=== PATIENT | female | born 1975 | race Caucasian/White ===

== ENCOUNTER 2017-03-07 18:13 | Emergency (ER) | payer OTHER ==
[2017-03-07 18:58] VITALS: BP 132/67
--- NOTE | 2017-03-07 19:06 | UC ---
Throat Pain/Nasal Wilfred HPI - HPI Summary HPI Summary: throat pain, ear pain for the past day, daughter has strep. - History of Current Complaint Chief Complaint: UCGeneralIllness Stated Complaint: SORE THROAT Time Seen by Provider: 03/07/17 19:00 Hx Obtained From: Patient Hx Last Menstrual Period: 03/14/16 ?: No Onset/Duration: Sudden Onset, Lasting Days - 1 Severity: Mild Cough: None Associated Signs & Symptoms: Positive: Dysphagia - Allergies/Home Medications Allergies/Adverse Reactions: Allergies Allergy/AdvReac Type Severity Reaction Status Date / Time Sulfa Antibiotics Allergy Altered Verified 03/07/17 18:58 Mental Status PMH/Surg Hx/FS Hx/Imm Hx Previously Healthy: Yes - Surgical History Surgical History: Yes Surgery Procedure, Year, and Place: 2 c-sections. sinus 2007. brain tumor- benign 07/16/14. ABLATION--05/2016. HYSTERECTOMY--10/2016 - Family History Known Family History: Positive: None Negative: Cardiac Disease, Hypertension - Social History Alcohol Use: Occasionally Substance Use Type: None Smoking Status (MU): Never Smoked Tobacco Review of Systems Constitutional: Negative Skin: Negative Eyes: Negative ENT: Sore Throat, Ear Ache Respiratory: Negative Cardiovascular: Negative Gastrointestinal: Negative Genitourinary: Negative Motor: Negative Neurovascular: Negative Musculoskeletal: Negative Neurological: Negative Psychological: Negative Is Patient Immunocompromised?: No All Other Systems Reviewed And Are Negative: Yes Physical Exam Triage Information Reviewed: Yes Appearance: Well-Appearing, Well-Nourished, Pain Distress Vital Signs: Initial Vital Signs Temp 98.6 F 03/07/17 18:55 Pulse 53 03/07/17 18:55 Resp 16 03/07/17 18:55 BP 132/67 03/07/17 18:55 Pulse Ox 100 03/07/17 18:55 Vital Signs Reviewed: Yes Eye Exam: Normal ENT Exam: Normal ENT: Positive: Pharyngeal erythema, TM bulging - serous fluid behind TM, bilateral Dental Exam: Normal Neck exam: Normal Neck: Positive: Supple, Nontender, No Lymphadenopathy Respiratory Exam: Normal Respiratory: Positive: Chest non-tender, Lungs clear, Normal breath sounds Cardiovascular Exam: Normal Cardiovascular: Positive: RRR, No Murmur, Pulses Normal Abdominal Exam: Normal Abdomen Description: Positive: Nontender, No Organomegaly, Soft Bowel Sounds: Positive: Present Musculoskeletal Exam: Normal Musculoskeletal: Positive: Strength Intact, ROM Intact, No Edema Neurological Exam: Normal Neurological: Positive: Alert, Muscle Tone Normal Psychological Exam: Normal Skin Exam: Normal Throat Pain/Nasal Course/Dx - Course Course Of Treatment: hx obtained, exam performed ,meds reviewed, rapid strep obtained and is neg, bother her kids are positive, she clinically presents as such and will treat - Differential Dx/Diagnosis Differential Diagnosis/HQI/PQRI: Pharyngitis, Sinusitis Provider Diagnoses: pharyngitis Discharge - Discharge Plan Condition: Stable Disposition: HOME Patient Education Materials: Pharyngitis (ED) Additional Instructions: 1. take the medication as prescribed. 2. INcrease fluid intake and get plenty of rest.
[2017-03-07] MEDS ORDERED: Amoxicillin PO (*) 500 MG CAP PO ONE (19:42)
== END 2017-03-07 19:50 | disposition home or self-care (01) ==
LOC: UCCORT 18:13
DX: J02.9 Acute pharyngitis, unspecified (principal); Z88.2 Allergy status to sulfonamides
CPT/HCPCS: 87651; 99211; A9270-GY; G0463

== ENCOUNTER 2019-04-13 08:42 | Emergency (ER) | payer OTHER ==
--- OUTSIDE RECORDS SUMMARY | 2019-04-13 09:11 | XMS REPORT | Summary of Care ---
:1975 Author Organization [facility] Address [address] [place] [address] Care Team Providers Name Role Phone Whit Smith Primary Care Provider Encounter Details Date Type Department Care Team Description 04/05/2019 Hospital Encounter [facility] Clinical Status post bariatric surgery; Pathology at [facility] Screening for endocrine, nutritional, metabolic and immunity disorder; [place] BMI 27.0-27.9,adult [address] [facility] Room [address] [place] [id number] Allergies Active Allergy Reactions Severity Noted Date Comments Sulfa Antibiotics Other (See Comments) High 06/20/2014 Patient reports "can 't function, can't sit up, walk, nothing". documented as of this encounter (statuses as of 04/06/2019) Medications Medication Sig Dispensed Refills Start Date End Date Status cyclobenzaprine Take 5 mg by 0 Active (FLEXERIL) 10 MG mouth Two times tablet daily as needed for Muscle spasms alprazolam (XANAX) Take 0.25 mg by 0 Active 0.25 MG tablet mouth Two times daily as needed for Sleep Docusate Sodium Take 100 mg by 0 Active (ELIZABETH STOOL mouth daily as SOFTENER PO) needed acetaminophen Take 500 mg by 0 Active (TYLENOL) 500 MG mouth every 6 tablet (six) hours as needed for Pain Multiple Take by mouth 0 Active Vitamins-Minerals (CELEBRATE MULTI-COMPLETE 36) CAPS Calcium Take by mouth 0 Active Citrate-Vitamin D (CITRACAL PETITES/VITAMIN D) 200-250 MG-UNIT TABS BIOTIN PO Take by mouth 0 Active butalbital-acetaminoph Take 1 tablet 0 Active en-caffeine (FIORICET, by mouth ESGIC) 50-325-40 MG per tablet omeprazole (PRILOSEC) Take 1 capsule 90 capsule 3 01/30/2019 01/29/2020 Active 20 MG by mouth daily capsuleIndications: To prevent Morbid obesity gastric ulcers Nystatin 387510 Apply to 60 g 3 04/05/2019 Active UNIT/GM External affected area Powder (MYCOSTATIN) three times daily as needed. documented as of this encounter (statuses as of 04/06/2019) Active Problems Problem Noted Date BMI 28.0-28.9,adult 05/09/2018 Status post bariatric surgery 12/07/2017 BMI 34.0-34.9,adult 12/07/2017 Anxiety 10/19/2017 Hyperlipidemia documented as of this encounter (statuses as of 04/06/2019) Resolved Problems Problem Noted Date Resolved Date Depression 10/19/2017 05/09/2018 Pre-op testing 08/17/2017 05/09/2018 Overview: Added automatically from request for surgery [id number] Morbid obesity 07/20/2017 12/07/2017 Adult BMI 40.0-44.9 kg/sq m 12/07/2017 documented as of this encounter (statuses as of 04/06/2019) Social History Tobacco Use Types Packs/Day Years Used Date Never Smoker 0 Smokeless Tobacco: Never Used Alcohol Use Drinks/Week oz/Week Comments Yes 1-2 Standard drinks or equivalent 1.0 - 2.0 weekly Sex Assigned at Date Recorded Not on file Job Start Date Occupation Industry Not on file Not on file Not on file Travel History Travel Start Travel End No recent travel history available. documented as of this encounter Last Filed Vital Signs Not on filedocumented in this encounter Plan of Treatment Date Type Specialty Care Team Description 05/03/2019 Nutrition Surgery Avril Kern, RD, CDN [address] [place] [address] [phone] Health Maintenance Due Date Last Done Comments MMR Vaccines (1 of 1 - Standard 1978 series) DTaP,Tdap,and Td Vaccines (1 - 1984 Tdap) HIV Screening 1990 Varicella Vaccines (1 of 2 - 13+ 1990 2-dose series) Cervical Cancer Screening 5 years 1998 Influenza Vaccine 02/21/2019 Pneumococcal Vaccine: 65+ Years (1 2042 of 2 - PCV13) HIB Vaccines Aged Out No longer eligible based on patient's age to complete this topic Hepatitis A Vaccines Aged Out No longer eligible based on patient's age to complete this topic Hepatitis B Vaccines Aged Out No longer eligible based on patient's age to complete this topic IPV Vaccines Aged Out No longer eligible based on patient's age to complete this topic Pneumococcal Vaccine: Pediatrics Aged Out No longer eligible based on (0 to 5 Years) and At-Risk patient's age to complete this Patients (6 to 64 Years) topic documented as of this encounter Implants Implanted Type Area Patient Care Assistant Device Shelf Model / Identifier Expiration Serial / Date Lot Chaim Julian 60 - [id number] N/A: Armando RYDER GARCIA [id number] / Implanted: Qty: 4 on 10/19/2017 by Jaison Irwin MD at [facility] [employer] [facility] / documented as of this encounter Procedures Procedure Name Priority Date/Time Associated Diagnosis Comments VITAMIN D 25 Routine 04/05/2019 4:25 PM Status post Results for this HYDROXY, TOTAL EST bariatric surgery procedure are in Screening for the results endocrine, section. nutritional, metabolic and immunity disorder BMI 27.0-27.9,adult IRON LEVEL Routine 04/05/2019 4:25 PM Status post Results for this EST bariatric surgery procedure are in Screening for the results endocrine, section. nutritional, metabolic and immunity disorder BMI 27.0-27.9,adult FOLATE Routine 04/05/2019 4:25 PM Status post Results for this EST bariatric surgery procedure are in Screening for the results endocrine, section. nutritional, metabolic and immunity disorder BMI 27.0-27.9,adult FERRITIN LEVEL Routine 04/05/2019 4:25 PM Status post Results for this EST bariatric surgery procedure are in Screening for the results endocrine, section. nutritional, metabolic and immunity disorder BMI 27.0-27.9,adult VITAMIN B12 Routine 04/05/2019 4:25 PM Status post Results for this EST bariatric surgery procedure are in Screening for the results endocrine, section. nutritional, metabolic and immunity disorder BMI 27.0-27.9,adult documented in this encounter Results Iron Level (04/05/2019 4:25 PM EST) Iron 90 37 - 145 ug/dl [facility] at CG Specimen Plasma Performing Organization Address City/State/Zipcode Phone Number [facility] AT [address] [address] [facility] at [address] [place] [phone] Vitamin B12 (04/05/2019 4:25 PM EST) Vitamin B12 1,161 (H) 211 - 946 pg/ml [facility] Clin Pathology Specimen Plasma Performing Organization Address City/[facility] Phone Number [facility] [address] [place] [address] [facility] [address] [place] [address] Pathology Vitamin D 25 Hydroxy, Total (04/05/2019 4:25 PM EST) Vitamin D 25 Hydroxy, 65 >30 ng/mL [facility] TOTAL Clin Pathology Specimen Serum Performing Organization Address [facility] Phone Number [facility] [address] [place] [address] [phone] [facility] [address] [place] [address] Pathology Folate (04/05/2019 4:25 PM EST) Folate >20.00 >4.77 ng/mL [facility] Clin Pathology Specimen Serum Performing Organization Address [facility] Phone Number [facility] [address] [place] [address] [phone] [facility] [address] [place] [address] Pathology Ferritin Level (04/05/2019 4:25 PM EST) Ferritin 41 13 - 150 ng/ml [facility] at Specimen Plasma Performing Organization Address City/[facility] Phone Number [facility] AT [address] [address] [facility] at [address] [place] [phone] documented in this encounter Visit Diagnoses Diagnosis Status post bariatric surgery Bariatric surgery status Screening for endocrine, nutritional, metabolic and immunity disorder Screening for other and unspecified endocrine, nutritional, metabolic, and immunity disorders BMI 27.0-27.9,adult Body Mass Index 27.0-27.9, adult documented in this encounter
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
[2019-04-13 09:36] VITALS: BP 112/72
--- NOTE | 2019-04-13 11:38 | UC ---
Throat Pain/Nasal Wilfred HPI - HPI Summary HPI Summary: Pt presents with c/o nasal congestion sinus pressure and pain, and LUX X 4 days. - History of Current Complaint Chief Complaint: UCRespiratory Stated Complaint: SINUS/EAR COMPLAINT Time Seen by Provider: 04/13/19 10:48 Hx Obtained From: Patient Hx Last Menstrual Period: 03/14/16 ?: No Onset/Duration: Gradual Onset, Lasting Days, Still Present, Worse Since - onset Severity: Moderate Pain Intensity: 5 Pain Scale Used: 0-10 Numeric Cough: None Associated Signs & Symptoms: Positive: Sinus Discomfort - Epiglottits Risk Factors Epiglottis Risk Factors: Negative - Allergies/Home Medications Allergies/Adverse Reactions: Allergies Allergy/AdvReac Type Severity Reaction Status Date / Time Sulfa (Sulfonamide Allergy Altered Verified 04/13/19 09:37 Antibiotics) Mental Status PMH/Surg Hx/FS Hx/Imm Hx Previously Healthy: Yes - Surgical History Surgical History: Yes Surgery Procedure, Year, and Place: 2 c-sections. sinus 2007. brain tumor- benign 07/16/14. Uterine ABLATION--05/2016. HYSTERECTOMY--10/2016 - Family History Known Family History: Positive: None Negative: Cardiac Disease, Hypertension - Social History Occupation: Employed Full-time Lives: With Family Alcohol Use: Occasionally Substance Use Type: None Smoking Status (MU): Never Smoked Tobacco Have You Smoked in the Last Year: No Review of Systems All Other Systems Reviewed And Are Negative: Yes Constitutional: Positive: Fatigue Skin: Positive: Negative Eyes: Positive: Negative ENT: Positive: Sinus Congestion, Sinus Pain/Tenderness Respiratory: Positive: Cough Cardiovascular: Positive: Negative Gastrointestinal: Positive: Negative Genitourinary: Positive: Negative Motor: Positive: Negative Neurovascular: Positive: Negative Musculoskeletal: Positive: Negative Neurological: Positive: Headache Psychological: Positive: Negative Is Patient Immunocompromised?: No Physical Exam Triage Information Reviewed: Yes Appearance: Well-Appearing Vital Signs: Initial Vital Signs Temp 98.8 F 04/13/19 09:32 Pulse 52 04/13/19 09:32 Resp 18 04/13/19 09:32 BP 112/72 04/13/19 09:32 Pulse Ox 100 04/13/19 09:32 Vital Signs Reviewed: Yes Eye Exam: Normal ENT: Positive: Nasal congestion, Sinus tenderness Dental Exam: Normal Neck exam: Normal Respiratory Exam: Normal Respiratory: Positive: Normal breath sounds Cardiovascular Exam: Normal Musculoskeletal Exam: Normal Neurological Exam: Normal Psychological Exam: Normal Skin Exam: Normal Throat Pain/Nasal Course/Dx - Course Course Of Treatment: I discussed with the pt viral vs bacterial infection. Pt requested antibiotics - Differential Dx/Diagnosis Differential Diagnosis/HQI/PQRI: Otitis Media, Sinusitis, URI Provider Diagnosis: Sinusitis Discharge ED - Sign-Out/Discharge Documenting (check all that apply): Patient Departure All imaging exams completed and their final reports reviewed: No Studies - Discharge Plan Condition: Stable Disposition: HOME Prescriptions: Amoxicillin PO (*) [Amoxicillin 875 MG (*)] 875 mg PO Q12H #20 tab Patient Education Materials: Sinusitis (ED), Safe Use of NSAIDs (ED) Referrals: Rosa Maria Wright [Primary Care Provider] - If Needed - Billing Disposition and Condition Condition: STABLE Disposition: Home
== END 2019-04-13 11:12 | disposition home or self-care (01) ==
LOC: UCCORT 08:42
DX: J32.9 Chronic sinusitis, unspecified (principal); Z88.2 Allergy status to sulfonamides
CPT/HCPCS: 99212; G0463